=== PATIENT | female | born 1990 | race Caucasian/White ===

== ENCOUNTER 2018-09-26 20:48 | Emergency (ER) | payer MEDICAID ==
[2018-09-26] MEDS ORDERED: Metoclopramide 10 MG/2 ML SDV IVPUSH ONE (21:35)
[2018-09-26] MEDS ORDERED: Acetaminophen/Butalbital/Caffeine 325-50-40 MG Tab PO ONE (21:37)
--- NOTE | 2018-09-26 22:02 | EDM.PDOC ---
ED HPI GENERAL MEDICAL PROBLEM - General Chief Complaint: Headache Stated Complaint: HEADACHE Time Seen by Provider: 09/26/18 21:02 Source of Information: Reports: Patient, RN Notes Reviewed, Significant Other ( Boyfriend) History Limitations: Reports: No Limitations - History of Present Illness INITIAL COMMENTS - FREE TEXT/NARRATIVE: The patient states that she is 10 weeks 6 days , by ultrasound obtained this past 09/24/2017. She states that she has been experiencing a bifrontal headache, throbbing in character, for the past week or so. The pain is constant. No visual changes. Light hurts her eyes, but does not worsen her headache, per se. She reports phonophobia. She has had nausea, but no emesis. She reports tingling of some fingers for the past 2 months, but no new neurologic symptoms, such as unilateral weakness. The patient also reports that she has had nasal congestion and cough. 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 Lazo, 4 days ago. She states the symptoms that prompted the diagnosis of a sinus infection were a stuffy and runny nose, cough, and phlegm. She denies having a recent fever. She denies having any facial pain, swelling, or erythema. She denies having any purulent nasal drainage or halitosis. All of these symptoms started about the same time as her headache. The patient states that the Z-Beto does not seem to have done anything. She is also taking Tylenol, 10-12 tablets of 500 mg per day (5-6 g per day), and that it only seems to be making her sick. She states that she tried [place] nasal spray, as well as oral Sudafed, also without any relief. The patient states that she is prescribed Reglan for morning sickness. She is typically taking it 3-4 times a day, although the last time she took it was this morning. She also reports drinking 2-4 caffeinated beverages per day, typically, but that she is trying to cut down, and has had only 2 today. The patient has continued to smoke half a pack of cigarettes per day throughout her . The patient's PCP is Dr. Hale. Headache Pain Score (Numeric/FACES): 10 - Related Data Allergies Allergy/AdvReac Type Severity Reaction Status Date / Time amoxicillin [From Augmentin] Allergy Rash Verified 09/26/18 21:04 clavulanic acid Allergy Rash Verified 09/26/18 21:04 [From Augmentin] latex Allergy Other Verified 09/26/18 21:04 Penicillins Allergy Airway Verified 09/26/18 21:04 Tightness Home Meds: Home Meds Azithromycin [Zithromax] 250 mg PO DAILY 09/26/18 [History] Cyanocobalamin (Vitamin B12) [Vitamin B12] 1 ml INJECT ASDIRECTED 09/26/18 [ History] PNV95/Ferrous Fumarate/FA [ Tablet] 1 tab PO DAILY 09/26/18 [History] Past Medical History 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: : 2 Para: 1 - Past Surgical History GI Surgical History: Reports: Bariatric Procedure (gastric bypass 2009), Cholecystectomy (2010), Other (See Below) (Hemorrhoidectomy 2017) Social & Family History - Tobacco Use Smoking Status *Q: Current Every Day Smoker Years of Tobacco use: 9 Packs/Tins Daily: 0.5 Packs/Tins Daily Comment: Down from 1 ppd - Caffeine Use Caffeine Use: Reports: Coffee - Alcohol Use Alcohol Use History: Yes Alcohol Use Frequency: Socially (when not ) - Recreational Drug Use Recreational Drug Use: No - Living Situation & Occupation Living situation: Reports: Single, Alone Occupation: Employed ([employer]) ED ROS GENERAL - Review of Systems Review Of Systems: ROS reveals no pertinent complaints other than HPI. - Physical Exam Exam: See Below Exam Limited By: No Limitations General Appearance: Alert, WD/WN, Mild Distress (appears uncomfortable) Eye Exam: Bilateral Eye: EOMI, Normal Inspection, PERRL Ears: Normal External Exam, Normal Canal, Hearing Grossly Normal, Normal TMs Nose: Normal Inspection, Normal Mucosa, No Blood Throat/Mouth: Normal Inspection, Normal Lips, Normal Teeth, Normal Gums, Normal Oropharynx, Normal Voice, No Airway Compromise Head Exam: Atraumatic, Normocephalic. No: Sinus Tenderness Neck: Normal Inspection, Supple, Non-Tender, Full Range of Motion. No: Lymphadenopathy (L), Lymphadenopathy (R) Respiratory/Chest: No Respiratory Distress, Lungs Clear, Normal Breath Sounds, No Accessory Muscle Use Cardiovascular: Normal Peripheral Pulses, Regular Rate, Rhythm, No Gallop, No JVD, No Murmur, No Rub GI/Abdominal: Normal Bowel Sounds, Soft, Non-Tender, No Organomegaly, No Distention, No Abnormal Bruit, No Mass, Other (Obese) (Female) Exam: Deferred Rectal (Female) Exam: Deferred Neuro Exam (Abbreviated): Alert, Oriented, CN II-XII Intact, Normal Cognition, No Motor/Sensory Deficits Back Exam: Normal Inspection, Full Range of Motion, NT Extremities: Normal Inspection, Normal Range of Motion, No Pedal Edema, Normal Capillary Refill Psychiatric: Normal Affect Skin Exam: Warm, Dry, Intact, Normal Color, No Rash Course - Vital Signs Last Recorded V/S: Last Vital Signs Temp 36.9 C 09/26/18 21:09 Pulse 75 09/26/18 21:09 Resp 20 09/26/18 21:09 BP 121/91 H 09/26/18 21:09 Pulse Ox 99 09/26/18 21:09 - Orders/Labs/Meds Meds: Medications Discontinued Medications Generic Name Dose Route Start Last Admin Trade Name Latonya PRN Reason Stop Dose Admin Acetaminophen/Butalbital/Caffeine 1 tab 09/26/18 21:37 09/26/18 22:05 Fioricet 325-50-40 Mg PO 09/26/18 21:38 1 tab ONETIME ONE Administration Metoclopramide HCl 10 mg 09/26/18 21:35 09/26/18 22:05 Reglan IVPUSH 09/26/18 21:36 10 mg ONETIME ONE Administration Ondansetron HCl 4 mg 09/26/18 22:09 09/26/18 22:13 Zofran Odt PO 09/26/18 22:10 4 mg ONETIME ONE Administration - Re-Assessments/Exams Free Text/Narrative Re-Assessment/Exam: 09/26/18 22:09 The cause of the patient's headache is unclear. While the patient refers to her headaches as migraines, and she has several features that are consistent with a migraine, such as throbbing in character, photophobia, phonophobia, and nausea, there are other features that are not consistent with a migraine, such as bifrontal location and absence of neurologic symptoms. The patient states that she was treated for migraines in the past, but took a daily medicine, not an as- needed medicine. Could the patient be referring to migraine prophylaxis? Ordinarily, if the patient were not and migraine etiology seemed likely , I would treat her with IM Haldol, and if that relieved her headache, that her headache is migrainous, without question. If it did nothing, that it is unlikely to be migrainous. Unfortunately, Haldol, Imitrex, and Maxalt are all category C, however, current guidelines recommend first attempting treatment of migraines in with acetaminophen alone, and if that is ineffective, adding IV Reglan, followed by oral Fioricet. If the patient's headache is a tension headache, Norflex is category C. Skelaxin may be okay, but preferably in the 2nd and 3rd trimester. Soma is probably okay, although both Skelaxin and Soma are not categorized. Flexeril is category B, although it is not truly a muscle relaxant. If the patient's headache is a sinus headache, which I doubt, given her physical exam, it is permissible for the patient to use a nasal decongestant spray, such as oxymetazoline, but only if she limits it to a few days. If the patient's headache is a medication overuse headache, or caffeine withdrawal headache, both of which are quite possible, Fioricet is not categorized, although Fiorinal is category C. I discussed the above with the patient and her boyfriend, and she agreed to try the Reglan and Fioricet. 09/26/18 22:35 Notified by Veronica HOWARD that the patient declined the Fioricet, due to the Tylenol that is intermittent. She is aware that she has been taking excessive Tylenol. Unfortunately, Fioricet does not come in an acetaminophen-free form. She told the nurse that the Reglan seems to be making her nausea worse. I have ordered 4 mg Zofran ODT. 09/26/18 23:23 The patient states that she is feeling significantly better. She was napping. As above, the underlying cause of the patient's headache is unclear, although I suspect that it may be due to medication overuse or caffeine withdrawal, or some combination. A migraine is possible, although I think it less likely. For tonight's purposes, I am recommending that the patient stay well hydrated and get plenty of rest in a dark, quiet place. I would then like her to follow-up with Dr. Lazo. Them recommending that she completely discontinue taking Tylenol altogether. The patient agreed. Departure - Departure Time of Disposition: 23:24 Disposition: Home, Self-Care 01 Condition: Fair Clinical Impression: Headache, Nausea, URI with cough and congestion - Discharge Information *PRESCRIPTION DRUG MONITORING PROGRAM REVIEWED*: Not Applicable *COPY OF PRESCRIPTION DRUG MONITORING REPORT IN PATIENT GYPSY: Not Applicable Referrals: Chris Lazo MD [Primary Care Provider] - Forms: ED Department Discharge Additional Instructions: You were seen in the emergency room for a headache with cough and congestion for the past week, while . You were treated with IV Reglan and oral Zofran in the ER, and had some improvement in your headache. We recommend that you stay adequately hydrated, and get plenty of rest in a dark , quiet place. The underlying cause of your headache is not clear. It could have a migraine component, versus medication overuse, versus caffeine withdrawal, versus sinusitis. You have been taking far too much Tylenol. We recommend that you discontinue it entirely, for the time being. We recommend that you follow-up with your Toilet And Laundry Soap Supervisor, Dr. Lazo, for further evaluation. If any other problems, please do not hesitate to return to the ER.
[2018-09-26] MEDS ORDERED: Ondansetron 4 MG Tab.DIS PO ONE (22:09)
== END 2018-09-26 22:37 | disposition home or self-care (01) ==
LOC: JD.ED 20:48 → SUPCPDRO 20:48 → JD.ED 22:37
DX: O99.511 Diseases of the respiratory system complicating pregnancy, first trimester (principal); J06.9 Acute upper respiratory infection, unspecified; R11.0 Nausea; O99.331 Smoking (tobacco) complicating pregnancy, first trimester; F17.210 Nicotine dependence, cigarettes, uncomplicated; Z88.1 Allergy status to other antibiotic agents; Z91.040 Latex allergy status; Z88.0 Allergy status to penicillin; Z79.899 Other long term (current) drug therapy; Z3A.10 10 weeks gestation of pregnancy
CPT/HCPCS: 96374; 99284; A9270; J2765

== ENCOUNTER 2019-05-23 19:53 | Emergency (ER) | payer MEDICAID ==
--- NOTE | 2019-05-23 20:52 | EDM.PDOC ---
ED HPI GENERAL MEDICAL PROBLEM - General Chief Complaint: ENT Problem Stated Complaint: right side recent tooth pulled possible dry socket Time Seen by Provider: 05/23/19 20:26 Source of Information: Reports: Patient History Limitations: Reports: No Limitations - History of Present Illness INITIAL COMMENTS - FREE TEXT/NARRATIVE: This is a 28-year-old female. She had a tooth extracted it looks like the right upper incisor on Saturday. She noted yesterday that the area started to hurt. She has no drainage from it. She believes she has a dry socket now. She does smoke and she does drink sodas. I explained to her that once that blood clot gets washed away from the tooth extraction site that causes a dry socket area and normally there is no antibiotics given that we just do pain control. I explained to her that narcotics are not normally given but to take ibuprofen or Aleve. I also suggested some clove oil to put on a Q-tip in that socket as well as get some black tea bags moistened and packed that area with the teabag. He denies any facial swelling she denies any other acute symptoms. Right Upper Tooth/Teeth Pain Score (Numeric/FACES): 9 - Related Data Allergies Allergy/AdvReac Type Severity Reaction Status Date / Time amoxicillin [From Augmentin] Allergy Rash Verified 04/14/19 10:29 clavulanic acid Allergy Rash Verified 04/14/19 10:29 [From Augmentin] latex Allergy Other Verified 04/14/19 10:29 Penicillins Allergy Airway Verified 04/14/19 10:29 Tightness Home Meds: Home Meds Cyanocobalamin (Vitamin B12) [Vitamin B12] 1 ml INJECT ASDIRECTED 09/26/18 [ History] Acetaminophen [Tylenol] 650 mg PO Q6H PRN tablet 04/16/19 [Rx] Ibuprofen [Motrin] 600 mg PO Q6H PRN tablet 04/16/19 [Rx] Past Medical History - Past Health History Medical/Surgical History: Denies Medical/Surgical History Gastrointestinal History: Reports: Other (See Below) Other Gastrointestinal History: gastric bi pass 2009 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: - Past Surgical History HEENT Surgical History: Reports: Other (See Below) Other HEENT Surgeries/Procedures: dental issues GI Surgical History: Reports: Bariatric Procedure, Cholecystectomy Social & Family History - Family History Family Medical History: Noncontributory - Tobacco Use Smoking Status *Q: Current Every Day Smoker Years of Tobacco use: 9 Packs/Tins Daily: 1 - Caffeine Use Caffeine Use: Reports: Coffee, Soda - Recreational Drug Use Recreational Drug Use: No - Living Situation & Occupation Living situation: Reports: Single, Alone Occupation: Employed ([employer]) ED ROS ENT - Review of Systems Review Of Systems: See Below Constitutional: Denies: Fever, Chills HEENT: Reports: Other (As per history of present illness) Respiratory: Reports: No Symptoms Cardiovascular: Reports: No Symptoms Endocrine: Reports: No Symptoms GI/Abdominal: Reports: No Symptoms : Reports: No Symptoms Musculoskeletal: Reports: No Symptoms Skin: Reports: No Symptoms Neurological: Reports: No Symptoms Psychiatric: Reports: No Symptoms Hematologic/Lymphatic: Reports: No Symptoms ED EXAM, ENT - Physical Exam Exam: See Below Exam Limited By: No Limitations General Appearance: Alert, WD/WN, Mild Distress Eye Exam: Bilateral Eye: Normal Inspection Ears: Normal External Exam Nose: Normal Inspection Mouth/Throat: Other (The right upper incisor tooth area is removed, I can see the bone and the gum is not closed over it and there is no blood clot there and I believe she has a dry socket, there is no gum swelling there is no drainage from the area) Head: Normocephalic Neck: Supple, Other (No lymphadenopathy) Respiratory/Chest: No Respiratory Distress GI/Abdominal: Soft Back: Full Range of Motion Extremities: Normal Inspection, Normal Range of Motion Neurological: Alert, Oriented Psychiatric: Normal Affect, Normal Mood Skin: Warm, Dry Course - Vital Signs Last Recorded V/S: Last Vital Signs Temp 97.8 F 05/23/19 20:15 Pulse 70 05/23/19 20:15 Resp 20 05/23/19 20:15 BP 160/96 H 05/23/19 20:15 Pulse Ox 98 05/23/19 20:15 - Re-Assessments/Exams Free Text/Narrative Re-Assessment/Exam: 05/23/19 21:42 I spoke to the patient regarding using clove oil and black tea bags that are moistened to pack the area. Also suggested Aleve 2 tablets 3 times a day with food to help with pain. She indicates she is going to call the dentist on Saturday for reevaluation and I thought that is a excellent idea. Departure - Departure Time of Disposition: 20:50 Disposition: Home, Self-Care 01 Condition: Good Clinical Impression: Dry tooth socket - Discharge Information *PRESCRIPTION DRUG MONITORING PROGRAM REVIEWED*: Not Applicable *COPY OF PRESCRIPTION DRUG MONITORING REPORT IN PATIENT GYPSY: Not Applicable Instructions: Dental Dry Socket, [id number] Referrals: PCP,None [Primary Care Provider] - Forms: ED Department Discharge Additional Instructions: Go to [facility] and get some clove oil and some black tea bags and packed the dry socket with the clove oil or at least coated and then used the moist black tea bags to pack the area to help with the pain, get Aleve take 2 tablets 3 times a day food. No sodas, cut back on smoking as much as possible, and do not use any straws area and follow up with your dentist on Saturday for recheck.
== END 2019-05-23 21:13 | disposition home or self-care (01) ==
LOC: JD.ED 19:53
DX: M27.3 Alveolitis of jaws (principal); F17.210 Nicotine dependence, cigarettes, uncomplicated; Z88.1 Allergy status to other antibiotic agents; Z88.0 Allergy status to penicillin; Z91.040 Latex allergy status
CPT/HCPCS: 99282

== ENCOUNTER 2019-07-03 14:14 | Emergency (ER) | payer MEDICAID ==
--- NOTE | 2019-07-03 15:10 | EDM.PDOC ---
<KehindeKianna daley - Last Filed: 07/03/19 15:14> ED HPI GENERAL MEDICAL PROBLEM - General Chief Complaint: ENT Problem Stated Complaint: DENTAL COMPLAINT Time Seen by Provider: 07/03/19 14:40 History Limitations: Reports: No Limitations - History of Present Illness INITIAL COMMENTS - FREE TEXT/NARRATIVE: Diamond is a 28 year old female who presents today c/o dental pain. She had a metal filling done on her left lower premolar and a eneida silver crown placed on the adjacent first molar on 07/01. The filling was very deep but not enough to warrant a root canal. When she woke up the next morning she felt a constant throbbing ache to the area of her dental work. She is also having some sharp shooting pain that she compares to "chewing on tin foil when you have metal fillings." She returned to the dentist yesterday to have the teeth rechecked and they shaved down her filling to better fit her bite. She said they suggested drilling out the metal filling and replacing it with a white filling but wanted her to try eating runny eggs, bananas and tums first to see if that helped with the pain, which it did not. The dentist was unable to see her again on and will not be in office until saturday. She has had no relief with Aleve. She denies fever, swelling, redness and any temperature sensitivities. - Related Data Allergies Allergy/AdvReac Type Severity Reaction Status Date / Time amoxicillin [From Augmentin] Allergy Rash Verified 04/14/19 10:29 clavulanic acid Allergy Rash Verified 04/14/19 10:29 [From Augmentin] latex Allergy Other Verified 04/14/19 10:29 Penicillins Allergy Airway Verified 04/14/19 10:29 Tightness Home Meds: Home Meds Cyanocobalamin (Vitamin B12) [Vitamin B12] 1 ml INJECT ASDIRECTED 09/26/18 [ History] Acetaminophen [Tylenol] 650 mg PO Q6H PRN tablet 04/16/19 [Rx] Ibuprofen [Motrin] 600 mg PO Q6H PRN tablet 04/16/19 [Rx] Acetaminophen/HYDROcodone [[place] 325-5 MG] 1 tab PO Q6H PRN #14 tablet 07/03/19 [Rx] Clindamycin HCl [Cleocin HCl] 150 mg PO Q8HR #20 capsule 07/03/19 [Rx] Etonogestrel [Nexplanon] 68 mg IMPLANT ASDIRECTED 07/03/19 [History] Naproxen [Naprosyn] 500 mg PO Q12HR #14 tab 07/03/19 [Rx] ED ROS ENT - Review of Systems Review Of Systems: See Below Constitutional: Reports: No Symptoms HEENT: Reports: Dental Pain. Denies: Throat Pain, Throat Swelling Respiratory: Reports: No Symptoms Cardiovascular: Reports: No Symptoms Endocrine: Reports: No Symptoms GI/Abdominal: Reports: No Symptoms : Reports: No Symptoms Musculoskeletal: Reports: No Symptoms Skin: Reports: No Symptoms Neurological: Reports: No Symptoms Psychiatric: Reports: No Symptoms Hematologic/Lymphatic: Reports: No Symptoms Immunologic: Reports: No Symptoms ED EXAM, ENT - Physical Exam Exam: See Below Exam Limited By: No Limitations General Appearance: Alert, WD/WN, No Apparent Distress Mouth/Throat: Normal Inspection, Normal Lips, Normal Oropharynx, Dental Pain, Dental Tenderness. No: Bleeding, Dental Abcess, Dental Trauma, Gum Swelling, Oral Ulcers, Throat Swelling, Tongue Swelling Head: Atraumatic, Normocephalic Neck: Normal Inspection, Supple, Non-Tender, Full Range of Motion Respiratory/Chest: No Respiratory Distress, Lungs Clear, Normal Breath Sounds, No Accessory Muscle Use, Chest Non-Tender Cardiovascular: Normal Peripheral Pulses, Regular Rate, Rhythm, No Edema, No Gallop, No JVD, No Murmur, No Rub Neurological: Alert Psychiatric: Normal Affect, Normal Mood Skin: Warm, Dry, Intact, Normal Color, No Rash Lymphatic: No Adenopathy Course - Vital Signs Last Recorded V/S: Last Vital Signs Temp 97.8 F 07/03/19 14:39 Pulse 78 07/03/19 14:39 Resp 20 07/03/19 14:39 BP 142/101 H 07/03/19 14:39 Pulse Ox 100 07/03/19 14:39 Departure - Departure Disposition: Home, Self-Care 01 Clinical Impression: Pain, dental - Discharge Information Prescriptions: Clindamycin HCl [Cleocin HCl] 150 mg PO Q8HR #20 capsule Naproxen [Naprosyn] 500 mg PO Q12HR #14 tab Acetaminophen/HYDROcodone [[place] 325-5 MG] 1 tab PO Q6H PRN #14 tablet PRN Reason: Pain Referrals: Devorah Adams MD [Primary Care Provider] - Forms: ED Department Discharge Additional Instructions: Clindamycin 150 mg 3 times daily for 1 week. Naprosyn 500 mg twice daily, tylenol in between doses for extra pain relief if needed or hydrocodone if needed for severe pain. Do not take tylenol and hydrocodone at the same time. Do not drive or when taking hydrocodone. See dentist early next week as planned. Prescriptions have been sent electronic to [facility]. 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: - Past Surgical History HEENT Surgical History: Reports: Other (See Below) Other HEENT Surgeries/Procedures: dental issues GI Surgical History: Reports: Bariatric Procedure, Cholecystectomy Social & Family History - Family History Family Medical History: Noncontributory - Tobacco Use Smoking Status *Q: Current Every Day Smoker Years of Tobacco use: 10 Packs/Tins Daily: 0.5 - Caffeine Use Caffeine Use: Reports: Coffee, Soda - Recreational Drug Use Recreational Drug Use: No - Living Situation & Occupation Living situation: Reports: Single, Alone Occupation: Employed ([employer]) Course - Re-Assessments/Exams Free Text/Narrative Re-Assessment/Exam: 07/03/19 15:53 initial hx and exam was done by ZOË Kumar student, I agree with her hx and exam as documented. I have also examined patient. Discharge instr. as documented. Departure - Departure Time of Disposition: 15:03 Condition: Fair
== END 2019-07-03 15:40 | disposition home or self-care (01) ==
LOC: JD.ED 14:14
DX: K08.89 Other specified disorders of teeth and supporting structures (principal); F17.210 Nicotine dependence, cigarettes, uncomplicated; Z88.0 Allergy status to penicillin; Z91.040 Latex allergy status; Z88.1 Allergy status to other antibiotic agents
CPT/HCPCS: 99282

== ENCOUNTER 2019-11-02 09:13 | Emergency (ER) | payer SELFPAY ==
--- NOTE | 2019-11-02 10:21 | EDM.PDOC ---
ED HPI GENERAL MEDICAL PROBLEM - General Chief Complaint: Respiratory Problem Stated Complaint: CAN'T CATCH BREATH Time Seen by Provider: 11/02/19 10:11 - History of Present Illness INITIAL COMMENTS - FREE TEXT/NARRATIVE: 29-year-old female presents the emergency room with breathing difficulties and anxiety. The patient is developed a nonproductive cough over the last 3 to 4 days. But over the last week or so the patient has had escalating anxiety. She is not sure what is causing what at this point. She denies any fevers or chills she is just been under all sorts of stress. She has been using an albuterol MDI without much success at this point - Related Data Allergies Allergy/AdvReac Type Severity Reaction Status Date / Time amoxicillin [From Augmentin] Allergy Rash Verified 11/02/19 09:30 clavulanic acid Allergy Rash Verified 11/02/19 09:30 [From Augmentin] latex Allergy Other Verified 11/02/19 09:30 Penicillins Allergy Airway Verified 11/02/19 09:30 Tightness Home Meds: Home Meds Acetaminophen [Tylenol] 650 mg PO Q6H PRN tablet 04/16/19 [Rx] Etonogestrel [Nexplanon] 68 mg IMPLANT ASDIRECTED 07/03/19 [History] Albuterol Sulfate [Albuterol Sulfate Hfa] 8.5 gm IH Q4H #1 hfa.aer.ad 11/02/19 [ Rx] LORazepam [Ativan] 0.5 mg PO Q24H PRN #6 tablet 11/02/19 [Rx] Past Medical History - Past Health History Medical/Surgical History: Denies Medical/Surgical History Gastrointestinal History: Reports: Other (See Below) Other Gastrointestinal History: gastric bi pass 2009 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: - Past Surgical History HEENT Surgical History: Reports: Other (See Below) Other HEENT Surgeries/Procedures: dental issues GI Surgical History: Reports: Bariatric Procedure, Cholecystectomy Social & Family History - Family History Family Medical History: Noncontributory - Tobacco Use Smoking Status *Q: Current Every Day Smoker Years of Tobacco use: 10 Packs/Tins Daily: 0.5 - Caffeine Use Caffeine Use: Reports: Soda - Recreational Drug Use Recreational Drug Use: No - Living Situation & Occupation Living situation: Reports: Single, Alone Occupation: Employed ([employer]) ED ROS GENERAL - Review of Systems Review Of Systems: See Below Constitutional: Reports: No Symptoms. Denies: Fever, Chills HEENT: Reports: No Symptoms Respiratory: Reports: Shortness of Breath, Cough. Denies: No Symptoms, Sputum Cardiovascular: Reports: No Symptoms Endocrine: Reports: No Symptoms GI/Abdominal: Reports: No Symptoms : Reports: No Symptoms Neurological: Reports: No Symptoms Psychiatric: Reports: Anxiety. Denies: Confusion, Suicidal Ideation Hematologic/Lymphatic: Reports: No Symptoms Immunologic: Reports: No Symptoms ED EXAM, GENERAL - Physical Exam Exam: See Below Exam Limited By: No Limitations General Appearance: Anxious (Mildly so) Eye Exam: Bilateral Eye: Normal Inspection Ears: Normal External Exam, Normal Canal, Hearing Grossly Normal, Normal TMs Nose: Normal Inspection, Normal Mucosa, No Blood Throat/Mouth: Normal Inspection, Normal Lips, Normal Teeth, Normal Gums, Normal Oropharynx, Normal Voice, No Airway Compromise Head: Atraumatic, Normocephalic Neck: Normal Inspection, Supple, Non-Tender, Full Range of Motion Respiratory/Chest: No Respiratory Distress, Lungs Clear, Normal Breath Sounds Cardiovascular: Regular Rate, Rhythm, No Edema, No Murmur Course - Vital Signs Last Recorded V/S: Last Vital Signs Temp 36.3 C 11/02/19 09:27 Pulse 88 11/02/19 09:27 Resp 25 H 11/02/19 09:27 BP 146/85 H 11/02/19 09:27 Pulse Ox 100 11/02/19 09:27 - Re-Assessments/Exams Free Text/Narrative Re-Assessment/Exam: 11/02/19 10:44 The patient does not have a ride home we will give her 1 mg Ativan to take when she gets home. Discussed getting a chest x-ray the patient would like to hold off on this which looks perfectly reasonable she has albuterol at home and but it is running low so we will refill her albuterol MDI advised her to use it 2 puffs every 4-6 hours while awake it is been shown to reduce the severity and the duration of her bronchitis but will not necessarily show immediate improvement. Departure - Departure Time of Disposition: 10:45 Disposition: Home, Self-Care 01 Clinical Impression: Bronchitis, Anxiety - Discharge Information Prescriptions: Albuterol Sulfate [Albuterol Sulfate Hfa] 8.5 gm IH Q4H #1 hfa.aer.ad LORazepam [Ativan] 0.5 mg PO Q24H PRN #6 tablet PRN Reason: Anxiety Referrals: Devorah Adams MD [Primary Care Provider] - Additional Instructions: Return to the emergency room with any questions problems or worsening symptoms. Continue using your albuterol inhaler 2 puffs every 4 hours while awake it will not show an immediate improvement but over time it is been shown in multiple studies to reduce the severity and reduce the duration of the bronchitis. Use the Ativan as directed. Follow-up with your regular provider if needed. Sepsis Event Note - Evaluation Sepsis Screening Result: No Definite Risk - Focused Exam Vital Signs: Vital Signs Temp Pulse Resp BP Pulse Ox 11/02/19 09:27 36.3 C 88 25 H 146/85 H 100 Date Exam was Performed: 11/02/19 Time Exam was Performed: 10:11
[2019-11-02] MEDS ORDERED: LORazepam 1 MG Tab PO ONE (10:24)
== END 2019-11-02 11:01 | disposition home or self-care (01) ==
LOC: JD.ED 09:13
DX: J40 Bronchitis, not specified as acute or chronic (principal); F41.9 Anxiety disorder, unspecified; F17.210 Nicotine dependence, cigarettes, uncomplicated; Z88.1 Allergy status to other antibiotic agents; Z88.0 Allergy status to penicillin; Z91.040 Latex allergy status; Z88.8 Allergy status to other drugs, medicaments and biological substances
CPT/HCPCS: 99284; A9270; 99283

== ENCOUNTER 2022-04-27 20:54 | Emergency (ER) | payer SELFPAY | END 2022-04-27 23:00 | LOC: JD.ED 20:54 | DX: Z53.21 Procedure and treatment not carried out due to patient leaving prior to being seen by health care provider (principal) ==

== ENCOUNTER 2022-07-23 15:45 | Emergency (ER) | payer MEDICAID ==
[2022-07-23] MEDS ORDERED: HYDROmorphone 1 MG/ML Syringe IM ONE (17:11)
== END 2022-07-23 18:56 | disposition home or self-care (01) ==
LOC: JD.ED 15:45
DX: K08.89 Other specified disorders of teeth and supporting structures (principal); Z72.0 Tobacco use; Z88.0 Allergy status to penicillin; Z88.1 Allergy status to other antibiotic agents; Z91.040 Latex allergy status
CPT/HCPCS: 96372; 99282; J1170

== ENCOUNTER 2023-06-28 05:41 | Emergency (ER) | payer MEDICAID ==
[2023-06-28] MEDS ORDERED: Ketorolac 60 MG/2 ML SDV IM ONE (06:06)
[2023-06-28] MEDS ORDERED: Sodium Chloride 0.9% 1,000 ML IV ONE (06:44)
[2023-06-28 06:53] LABS: CORONAVIRUS COVID-19 NAA NEGATIVE (NEGATIVE); INFLUENZA A NAA NEGATIVE (NEGATIVE); RESPIRATORY SYNCYTIAL VIR NAA NEGATIVE (NEGATIVE)
[2023-06-28 06:57] LABS: BASOPHILS PERCENT AUTO 0.3 % (0.0-1.0); EOSINOPHILS ABSOLUTE AUTO 0.1 K/mm3 (0.0-0.4); HEMATOCRIT 40.9 % (37.0-47.0); HEMOGLOBIN 12.6 gm/dl (12.0-16.0); IMMATURE GRAN ABSOLUTE AUTO 0.03 K/mm3 (0.00-0.05); IMMATURE GRAN PERCENT AUTO 0.3 % (0.0-0.4); LYMPHOCYTES ABSOLUTE AUTO 0.7 K/mm3 (1.0-4.8); LYMPHOCYTES PERCENT AUTO 7.8 % (24.0-44.0); MEAN CORPUSCULAR HGB CONC 30.8 g/dl (32.0-36.0); MEAN CORPUSCULAR VOLUME 84.5 fl (83.0-99.0); MEAN PLATELET VOLUME 10.6 fl (9.4-12.3); MONOCYTES ABSOLUTE AUTO 1.1 K/mm3 (0.0-0.8); MONOCYTES PERCENT AUTO 12.6 % (0.0-8.0); PLATELET COUNT,PLT 171 K/mm3 (150-400); RED BLOOD CELL COUNT 4.84 M/mm3 (4.10-5.30); WHITE BLOOD CELL COUNT,WBC 8.99 K/mm3 (3.9-11.3)
[2023-06-28] MEDS ORDERED: Acetaminophen/HYDROcodone 325-5 MG Tab PO PRN (07:17)
[2023-06-28 07:22] LABS: A/G RATIO 0.8 (1-2); ALBUMIN 3.4 g/dl (3.4-5.0); ANION GAP 15.7 (5-15); BILIRUBIN TOTAL 0.2 mg/dL (0.2-1.0); BUN/CREATININE RATIO 15.7 (14-18); CALCIUM 9.2 mg/dL (8.5-10.1); CREATININE 0.7 mg/dL (0.55-1.02); EST CRCL DRUG DOSING (CG) 104.78 mL/min; MAGNESIUM 1.9 mg/dL (1.8-2.4); POTASSIUM,K 3.7 mEq/L (3.5-5.1); PROTEIN TOTAL,TP 7.5 g/dl (6.4-8.2)
== END 2023-06-28 08:25 | disposition home or self-care (01) ==
LOC: JD.ED 05:41
DX: J06.9 Acute upper respiratory infection, unspecified (principal); F17.210 Nicotine dependence, cigarettes, uncomplicated; Z20.822 Contact with and (suspected) exposure to COVID-19; Z88.0 Allergy status to penicillin; Z91.040 Latex allergy status; Z88.8 Allergy status to other drugs, medicaments and biological substances
CPT/HCPCS: 0241U; 36415; 80053; 83735; 85025; 87651; 96360; 96361; 96372; 99284; A9270; J1885; J7030; 99283

== ENCOUNTER 2023-06-29 05:16 | Emergency (ER) | payer MEDICAID ==
[2023-06-29] MEDS ORDERED: Sodium Chloride 0.9% 1,000 ML IV ONE (05:40)
[2023-06-29] MEDS ORDERED: Ketorolac 30 MG/ML SDV IVPUSH ONE (05:40)
[2023-06-29] MEDS ORDERED: diphenhydrAMINE 50 MG/ML SDV IVPUSH ONE (05:40)
[2023-06-29] MEDS ORDERED: Metoclopramide 10 MG/2 ML SDV IVPUSH ONE (05:40)
[2023-06-29] MEDS ORDERED: Sodium Chloride 0.9% 10 ML Syringe FLUSH PRN (05:40)
== END 2023-06-29 07:22 | disposition home or self-care (01) ==
LOC: JD.ED 05:16
DX: R51.9 Headache, unspecified (principal); H66.003 Acute suppurative otitis media without spontaneous rupture of ear drum, bilateral; J01.90 Acute sinusitis, unspecified; J06.9 Acute upper respiratory infection, unspecified; Z88.1 Allergy status to other antibiotic agents; Z88.0 Allergy status to penicillin; Z91.040 Latex allergy status
CPT/HCPCS: 70450; 96361; 96374; 96375; 99284; J1200; J1885; J2765; J7030

== ENCOUNTER 2023-09-18 07:24 | Emergency (ER) | payer MEDICAID ==
[2023-09-18] MEDS ORDERED: Ketorolac 30 MG/ML SDV IVPUSH ONE (08:28)
[2023-09-18] MEDS ORDERED: Sodium Chloride 0.9% 10 ML Syringe FLUSH PRN ×2 (08:28→10:11)
[2023-09-18] MEDS ORDERED: Prochlorperazine 10 MG/2 ML SDV IVPUSH ONE (08:28)
[2023-09-18] MEDS ORDERED: diphenhydrAMINE 50 MG/ML SDV IVPUSH ONE (08:28)
[2023-09-18] MEDS ORDERED: Sodium Chloride 0.9% 1,000 ML IV ONE (08:28)
[2023-09-18 09:20] LABS: BASOPHILS PERCENT AUTO 0.3 % (0.0-1.0); EOSINOPHILS ABSOLUTE AUTO 0.1 K/mm3 (0.0-0.4); EOSINOPHILS PERCENT AUTO 0.8 % (0.0-6.0); HEMATOCRIT 38.5 % (37.0-47.0); HEMOGLOBIN 12.5 gm/dl (12.0-16.0); IMMATURE GRAN ABSOLUTE AUTO 0.05 K/mm3 (0.00-0.05); IMMATURE GRAN PERCENT AUTO 0.5 % (0.0-0.4); LYMPHOCYTES ABSOLUTE AUTO 0.5 K/mm3 (1.0-4.8); LYMPHOCYTES PERCENT AUTO 4.6 % (24.0-44.0); MEAN CORPUSCULAR HEMOGLOBIN 26.2 pg (28.0-32.0); MEAN CORPUSCULAR HGB CONC 32.5 g/dl (32.0-36.0); MEAN CORPUSCULAR VOLUME 80.5 fl (83.0-99.0); MEAN PLATELET VOLUME 10.6 fl (9.4-12.3); MONOCYTES ABSOLUTE AUTO 0.2 K/mm3 (0.0-0.8); MONOCYTES PERCENT AUTO 2.1 % (0.0-8.0); NEUTROPHILS ABSOLUTE AUTO 9.9 K/mm3 (1.8-7.7); NEUTROPHILS PERCENT AUTO 91.7 % (41.0-71.0); PLATELET COUNT,PLT 251 K/mm3 (150-400); RED BLOOD CELL COUNT 4.78 M/mm3 (4.10-5.30); WHITE BLOOD CELL COUNT,WBC 10.74 K/mm3 (3.9-11.3)
[2023-09-18 09:37] LABS: A/G RATIO 1.1 (1-2); ALBUMIN 3.8 g/dl (3.4-5.0); ANION GAP 18.4 (5-15); BUN/CREATININE RATIO 25.7 (14-18); CALCIUM 9.1 mg/dL (8.5-10.1); CREATININE 0.7 mg/dL (0.55-1.02); EST CRCL DRUG DOSING (CG) 103.82 mL/min; MAGNESIUM 1.5 mg/dL (1.8-2.4); POTASSIUM,K 3.4 mEq/L (3.5-5.1); PROTEIN TOTAL,TP 7.2 g/dl (6.4-8.2)
[2023-09-18 09:38] LABS: APPEARANCE,URINE SLT CLOUDY (Clear); BILIRUBIN,URINE 1+ (Negative); COLOR,URINE DARK YELLOW (Yellow); GLUCOSE,URINE NEGATIVE (Negative); KETONES,URINE TRACE (Negative); LEUKOCYTE ESTERASE,URINE 1+ (Negative); NITRITE,URINE NEGATIVE (Negative); OCCULT BLOOD,URINE NEGATIVE (Negative); PH,URINE 7.5 (5.0-8.0); PROTEIN,URINE 1+ (Negative)
[2023-09-18 09:47] LABS: BACTERIA,URINE MODERATE /hpf (FEW); MUCUS,URINE MODERATE /hpf (FEW); RBC,URINE 0-5 /hpf (0-5)
[2023-09-18] MEDS ORDERED: Iopamidol 612 MG/ML 100 ML Bottle IVPUSH ONE (10:11)
[2023-09-18 13:04] LABS: CORONAVIRUS COVID-19 NAA NEGATIVE (NEGATIVE); INFLUENZA A NAA NEGATIVE (NEGATIVE); RESPIRATORY SYNCYTIAL VIR NAA NEGATIVE (NEGATIVE)
== END 2023-09-18 13:17 | disposition home or self-care (01) ==
LOC: JD.ED 07:24
DX: A08.4 Viral intestinal infection, unspecified (principal); Z20.822 Contact with and (suspected) exposure to COVID-19; Z88.0 Allergy status to penicillin; Z91.048 Other nonmedicinal substance allergy status
CPT/HCPCS: 0241U; 36415; 74177; 80053; 81001; 83735; 84703; 85025; 96361; 96374; 96375; 99284; J0780; J1200; J1885; J3490; J7030; Q9967

== ENCOUNTER 2023-09-19 11:00 | Inpatient (IN) | payer MEDICAID ==
[2023-09-19] MEDS ORDERED: Sodium Chloride 0.9% 1,000 ML IV STA (11:26)
[2023-09-19] MEDS ORDERED: Dicyclomine 20 MG/2 ML SDV IM ONE (11:35)
[2023-09-19] MEDS ORDERED: Metoclopramide 10 MG/2 ML SDV IVPUSH ONE (11:36)
[2023-09-19] MEDS ORDERED: Ketorolac 30 MG/ML SDV IVPUSH ONE (11:36)
[2023-09-19] MEDS: Sodium Chloride 0.9% 10 ML Syringe FLUSH PRN ×2 (12:17→13:24)
[2023-09-19] MEDS ORDERED: diphenhydrAMINE 50 MG/ML SDV IVPUSH ONE (12:29)
[2023-09-19 12:34] LABS: BASOPHILS ABSOLUTE AUTO 0.1 K/mm3 (0.0-0.2); BASOPHILS PERCENT AUTO 0.4 % (0.0-1.0); EOSINOPHILS ABSOLUTE AUTO 0.2 K/mm3 (0.0-0.4); HEMATOCRIT 39.5 % (37.0-47.0); HEMOGLOBIN 12.6 gm/dl (12.0-16.0); IMMATURE GRAN ABSOLUTE AUTO 0.16 K/mm3 (0.00-0.05); IMMATURE GRAN PERCENT AUTO 0.8 % (0.0-0.4); LYMPHOCYTES ABSOLUTE AUTO 0.4 K/mm3 (1.0-4.8); LYMPHOCYTES PERCENT AUTO 2.3 % (24.0-44.0); MEAN CORPUSCULAR HEMOGLOBIN 25.6 pg (28.0-32.0); MEAN CORPUSCULAR HGB CONC 31.9 g/dl (32.0-36.0); MEAN CORPUSCULAR VOLUME 80.3 fl (83.0-99.0); MEAN PLATELET VOLUME 10.3 fl (9.4-12.3); MONOCYTES ABSOLUTE AUTO 0.3 K/mm3 (0.0-0.8); MONOCYTES PERCENT AUTO 1.7 % (0.0-8.0); NEUTROPHILS ABSOLUTE AUTO 18.2 K/mm3 (1.8-7.7); NEUTROPHILS PERCENT AUTO 93.8 % (41.0-71.0); PLATELET COUNT,PLT 265 K/mm3 (150-400); RED BLOOD CELL COUNT 4.92 M/mm3 (4.10-5.30); WHITE BLOOD CELL COUNT,WBC 19.37 K/mm3 (3.9-11.3)
[2023-09-19 12:50] LABS: SLIDE REVIEW ABNORMAL SMEAR
[2023-09-19 12:57] LABS: A/G RATIO 0.7 (1-2); ALBUMIN 2.8 g/dl (3.4-5.0); BILIRUBIN TOTAL 0.4 mg/dL (0.2-1.0); BUN/CREATININE RATIO 17.5 (14-18); CALCIUM 8.8 mg/dL (8.5-10.1); CREATININE 0.8 mg/dL (0.55-1.02); EST CRCL DRUG DOSING (CG) 90.7 mL/min; PROTEIN TOTAL,TP 6.8 g/dl (6.4-8.2)
[2023-09-19 13:05] LABS: C-REACTIVE PROTEIN 31.9 mg/dL (<1.0)
[2023-09-19] MEDS ORDERED: Iopamidol 612 MG/ML 30 ML SDV IVPUSH ONE (13:21)
[2023-09-19] MEDS ORDERED: Iopamidol 612 MG/ML 100 ML Bottle IVPUSH ONE (13:21)
[2023-09-19] MEDS ORDERED: HYDROmorphone 0.5 MG/0.5 ML Syringe IVPUSH ONE ×2 (14:35→17:42)
[2023-09-19] MEDS ORDERED: NS with KCl 40mEq 1,000 ML IV SCH (16:30)
[2023-09-19] MEDS ORDERED: cefTRIAXone 2 GM in Sodium Chloride 0.9% 100 ML IV ONE (17:39)
[2023-09-19] MEDS ORDERED: Ondansetron 4 MG Tab.DIS PO PRN (18:02)
[2023-09-19] MEDS ORDERED: Ondansetron 4 MG/2 ML SDV IV PRN (18:02)
[2023-09-19] MEDS ORDERED: Heparin Sodium 5,000 Units/ML Vial SUBCUT SCH ×2 (18:15→18:30)
[2023-09-19] MEDS ORDERED: cefTRIAXone 2 GM in Sodium Chloride 0.9% 100 ML IV SCH (18:15)
[2023-09-19 18:18] LABS: APPEARANCE,URINE CLOUDY (Clear); BILIRUBIN,URINE NEGATIVE (Negative); COLOR,URINE YELLOW (Yellow); GLUCOSE,URINE NEGATIVE (Negative); KETONES,URINE TRACE (Negative); LEUKOCYTE ESTERASE,URINE 1+ (Negative); NITRITE,URINE NEGATIVE (Negative); OCCULT BLOOD,URINE 2+ (Negative); PH,URINE 5.5 (5.0-8.0); PROTEIN,URINE 2+ (Negative); UROBILINOGEN,URINE 0.2 (0.2-1.0)
[2023-09-19 18:49] LABS: BACTERIA,URINE MANY /hpf (FEW); MUCUS,URINE FEW /hpf (FEW)
[2023-09-19] MEDS: Potassium Chloride 10 MEQ in Premix Bag 1 BAG IV SCH ×6 (19:51→23:11)
[2023-09-19] MEDS: Lactated Ringers 1,000 ML IV SCH (19:51)
[2023-09-19] MEDS: HYDROmorphone 0.5 MG/0.5 ML Syringe IVPUSH PRN ×2 (19:52→22:50)
[2023-09-19] MEDS: Acetaminophen 325 MG Tab PO PRN (22:50)
[2023-09-20] MEDS: Lactated Ringers 1,000 ML IV SCH (04:11)
[2023-09-20] MEDS: Heparin Sodium 5,000 Units/ML Vial SUBCUT SCH ×3 (04:11→20:25)
[2023-09-20] MEDS: HYDROmorphone 1 MG/ML Syringe IVPUSH PRN ×4 (04:21→20:28)
[2023-09-20] MEDS: HYDROmorphone 0.5 MG/0.5 ML Syringe IVPUSH PRN ×3 (07:49→18:24)
[2023-09-20] MEDS ORDERED: LORazepam 0.5 MG Tab PO PRN (08:02)
[2023-09-20] MEDS ORDERED: D5 1/2 NS w/ 20 mEq/L KCl 1,000 ML IV SCH (08:15)
[2023-09-20 08:46] LABS: BASOPHILS PERCENT AUTO 0.3 % (0.0-1.0); EOSINOPHILS ABSOLUTE AUTO 0.3 K/mm3 (0.0-0.4); HEMATOCRIT 33.7 % (37.0-47.0); IMMATURE GRAN ABSOLUTE AUTO 0.08 K/mm3 (0.00-0.05); IMMATURE GRAN PERCENT AUTO 0.7 % (0.0-0.4); LYMPHOCYTES ABSOLUTE AUTO 0.7 K/mm3 (1.0-4.8); LYMPHOCYTES PERCENT AUTO 6.4 % (24.0-44.0); MEAN CORPUSCULAR HEMOGLOBIN 25.3 pg (28.0-32.0); MEAN CORPUSCULAR HGB CONC 31.5 g/dl (32.0-36.0); MEAN CORPUSCULAR VOLUME 80.4 fl (83.0-99.0); MEAN PLATELET VOLUME 11.3 fl (9.4-12.3); MONOCYTES ABSOLUTE AUTO 0.5 K/mm3 (0.0-0.8); MONOCYTES PERCENT AUTO 4.9 % (0.0-8.0); NEUTROPHILS ABSOLUTE AUTO 9.2 K/mm3 (1.8-7.7); NEUTROPHILS PERCENT AUTO 84.7 % (41.0-71.0); PLATELET COUNT,PLT 245 K/mm3 (150-400); RED BLOOD CELL COUNT 4.19 M/mm3 (4.10-5.30); WHITE BLOOD CELL COUNT,WBC 10.92 K/mm3 (3.9-11.3)
[2023-09-20] MEDS ORDERED: Thiamine 200 MG/2 ML MDV IVPUSH SCH (09:00)
[2023-09-20] MEDS ORDERED: Folic Acid 50 MG/10 ML MDV IV SCH (09:00)
[2023-09-20] MEDS ORDERED: Pantoprazole 40 MG Vial IV SCH (09:00)
[2023-09-20 09:02] LABS: HEMOGLOBIN 10.6 gm/dl (12.0-16.0)
[2023-09-20 09:10] LABS: A/G RATIO 0.6 (1-2); ALBUMIN 2.2 g/dl (3.4-5.0); ANION GAP 13.5 (5-15); BILIRUBIN TOTAL 0.4 mg/dL (0.2-1.0); BUN/CREATININE RATIO 17.1 (14-18); CALCIUM 8.6 mg/dL (8.5-10.1); CREATININE 0.7 mg/dL (0.55-1.02); EST CRCL DRUG DOSING (CG) 103.82 mL/min; POTASSIUM,K 3.5 mEq/L (3.5-5.1)
[2023-09-20] MEDS: Potassium Chloride 10 MEQ in Premix Bag 1 BAG IV SCH ×2 (09:34→10:45)
[2023-09-20] MEDS: Pantoprazole 40 MG Tab.CR PO SCH (16:14)
[2023-09-20] MEDS: cefTRIAXone 2 GM in Sodium Chloride 0.9% 100 ML IV SCH (18:23)
[2023-09-20] MEDS: Acetaminophen 325 MG Tab PO PRN (18:24)
[2023-09-20] MEDS: oxyCODONE 5 MG Tab PO PRN (21:45)
[2023-09-21] MEDS: HYDROmorphone 1 MG/ML Syringe IVPUSH PRN ×4 (01:35→21:19)
[2023-09-21] MEDS: oxyCODONE 5 MG Tab PO PRN ×5 (04:43→21:03)
[2023-09-21] MEDS: Heparin Sodium 5,000 Units/ML Vial SUBCUT SCH ×3 (04:44→21:08)
[2023-09-21] MEDS: Pantoprazole 40 MG Tab.CR PO SCH ×3 (04:44→16:58)
[2023-09-21 05:31] LABS: BASOPHILS PERCENT AUTO 0.4 % (0.0-1.0); EOSINOPHILS ABSOLUTE AUTO 0.4 K/mm3 (0.0-0.4); EOSINOPHILS PERCENT AUTO 4.2 % (0.0-6.0); HEMATOCRIT 33.4 % (37.0-47.0); HEMOGLOBIN 10.6 gm/dl (12.0-16.0); IMMATURE GRAN ABSOLUTE AUTO 0.11 K/mm3 (0.00-0.05); IMMATURE GRAN PERCENT AUTO 1.3 % (0.0-0.4); LYMPHOCYTES ABSOLUTE AUTO 0.8 K/mm3 (1.0-4.8); LYMPHOCYTES PERCENT AUTO 9.1 % (24.0-44.0); MEAN CORPUSCULAR HEMOGLOBIN 25.9 pg (28.0-32.0); MEAN CORPUSCULAR HGB CONC 31.7 g/dl (32.0-36.0); MEAN CORPUSCULAR VOLUME 81.7 fl (83.0-99.0); MEAN PLATELET VOLUME 10.6 fl (9.4-12.3); MONOCYTES PERCENT AUTO 11.5 % (0.0-8.0); NEUTROPHILS ABSOLUTE AUTO 6.1 K/mm3 (1.8-7.7); NEUTROPHILS PERCENT AUTO 73.5 % (41.0-71.0); PLATELET COUNT,PLT 245 K/mm3 (150-400); RED BLOOD CELL COUNT 4.09 M/mm3 (4.10-5.30); WHITE BLOOD CELL COUNT,WBC 8.25 K/mm3 (3.9-11.3)
[2023-09-21 05:53] LABS: ANION GAP 10.9 (5-15); CALCIUM 8.5 mg/dL (8.5-10.1); CREATININE 0.6 mg/dL (0.55-1.02); EST CRCL DRUG DOSING (CG) 121.13 mL/min; MAGNESIUM 1.9 mg/dL (1.8-2.4); POTASSIUM,K 3.9 mEq/L (3.5-5.1)
[2023-09-21 06:12] LABS: C-REACTIVE PROTEIN 22.5 mg/dL (<1.0)
[2023-09-21] MEDS: Thiamine 100 MG Tab PO SCH (09:36)
[2023-09-21] MEDS: Folic Acid 1 MG Tab PO SCH (09:37)
[2023-09-21] MEDS: cefTRIAXone 2 GM in Sodium Chloride 0.9% 100 ML IV SCH (17:07)
[2023-09-21] MEDS: Simethicone 80 MG Tab.Chew PO PRN (21:05)
[2023-09-22] MEDS: HYDROmorphone 1 MG/ML Syringe IVPUSH PRN ×2 (01:17→05:16)
[2023-09-22] MEDS: Heparin Sodium 5,000 Units/ML Vial SUBCUT SCH ×3 (05:16→20:28)
[2023-09-22] MEDS: Pantoprazole 40 MG Tab.CR PO SCH ×2 (05:16→16:51)
[2023-09-22 05:22] LABS: BASOPHILS PERCENT AUTO 0.5 % (0.0-1.0); EOSINOPHILS ABSOLUTE AUTO 0.4 K/mm3 (0.0-0.4); EOSINOPHILS PERCENT AUTO 5.9 % (0.0-6.0); HEMATOCRIT 33.8 % (37.0-47.0); HEMOGLOBIN 10.7 gm/dl (12.0-16.0); IMMATURE GRAN ABSOLUTE AUTO 0.06 K/mm3 (0.00-0.05); LYMPHOCYTES ABSOLUTE AUTO 0.9 K/mm3 (1.0-4.8); LYMPHOCYTES PERCENT AUTO 15.3 % (24.0-44.0); MEAN CORPUSCULAR HEMOGLOBIN 25.6 pg (28.0-32.0); MEAN CORPUSCULAR HGB CONC 31.7 g/dl (32.0-36.0); MEAN CORPUSCULAR VOLUME 80.9 fl (83.0-99.0); MONOCYTES PERCENT AUTO 16.9 % (0.0-8.0); NEUTROPHILS ABSOLUTE AUTO 3.6 K/mm3 (1.8-7.7); NEUTROPHILS PERCENT AUTO 60.4 % (41.0-71.0); PLATELET COUNT,PLT 257 K/mm3 (150-400); RED BLOOD CELL COUNT 4.18 M/mm3 (4.10-5.30); WHITE BLOOD CELL COUNT,WBC 5.93 K/mm3 (3.9-11.3)
[2023-09-22 05:34] LABS: ANION GAP 10.6 (5-15); CALCIUM 8.5 mg/dL (8.5-10.1); CREATININE 0.6 mg/dL (0.55-1.02); EST CRCL DRUG DOSING (CG) 121.13 mL/min; MAGNESIUM 1.8 mg/dL (1.8-2.4); POTASSIUM,K 3.6 mEq/L (3.5-5.1)
[2023-09-22 05:52] LABS: C-REACTIVE PROTEIN 15.2 mg/dL (<1.0)
[2023-09-22] MEDS: Thiamine 100 MG Tab PO SCH (08:25)
[2023-09-22] MEDS: Folic Acid 1 MG Tab PO SCH (08:25)
[2023-09-22] MEDS: HYDROmorphone 2 MG Tab PO PRN ×5 (08:25→20:44)
[2023-09-22] MEDS: Simethicone 80 MG Tab.Chew PO PRN ×2 (11:28→20:27)
[2023-09-22] MEDS: Acetaminophen 325 MG Tab PO PRN ×2 (16:51→20:26)
[2023-09-22] MEDS: cefTRIAXone 2 GM in Sodium Chloride 0.9% 100 ML IV SCH (17:48)
[2023-09-23] MEDS: HYDROmorphone 2 MG Tab PO PRN ×3 (01:04→11:28)
[2023-09-23] MEDS: Acetaminophen 325 MG Tab PO PRN ×3 (01:05→09:00)
[2023-09-23] MEDS: Simethicone 80 MG Tab.Chew PO PRN (05:00)
[2023-09-23] MEDS: Heparin Sodium 5,000 Units/ML Vial SUBCUT SCH ×2 (05:00→12:58)
[2023-09-23] MEDS: Pantoprazole 40 MG Tab.CR PO SCH (05:00)
[2023-09-23 05:32] LABS: BASOPHILS PERCENT AUTO 0.6 % (0.0-1.0); EOSINOPHILS ABSOLUTE AUTO 0.3 K/mm3 (0.0-0.4); EOSINOPHILS PERCENT AUTO 4.1 % (0.0-6.0); HEMATOCRIT 36.5 % (37.0-47.0); HEMOGLOBIN 11.7 gm/dl (12.0-16.0); IMMATURE GRAN PERCENT AUTO 1.6 % (0.0-0.4); MEAN CORPUSCULAR HEMOGLOBIN 25.3 pg (28.0-32.0); MEAN CORPUSCULAR HGB CONC 32.1 g/dl (32.0-36.0); MEAN PLATELET VOLUME 10.9 fl (9.4-12.3); MONOCYTES ABSOLUTE AUTO 0.9 K/mm3 (0.0-0.8); MONOCYTES PERCENT AUTO 13.5 % (0.0-8.0); NEUTROPHILS ABSOLUTE AUTO 4.1 K/mm3 (1.8-7.7); NEUTROPHILS PERCENT AUTO 64.2 % (41.0-71.0); PLATELET COUNT,PLT 293 K/mm3 (150-400); RED BLOOD CELL COUNT 4.62 M/mm3 (4.10-5.30); WHITE BLOOD CELL COUNT,WBC 6.37 K/mm3 (3.9-11.3)
[2023-09-23 05:54] LABS: ANION GAP 13.7 (5-15); BUN/CREATININE RATIO 12.9 (14-18); C-REACTIVE PROTEIN 11.9 mg/dL (<1.0); CALCIUM 8.9 mg/dL (8.5-10.1); CREATININE 0.7 mg/dL (0.55-1.02); EST CRCL DRUG DOSING (CG) 103.82 mL/min; POTASSIUM,K 3.7 mEq/L (3.5-5.1)
[2023-09-23] MEDS: Thiamine 100 MG Tab PO SCH (08:54)
== END 2023-09-23 12:19 | disposition home or self-care (01) | DRG 392 ==
LOC: JD.ED 11:00 → JD.MS 18:02
PROVIDERS: ADMIT Hospitalist; ATTEND Internal Medicine
DX: K52.9 Noninfective gastroenteritis and colitis, unspecified (principal); K56.7 Ileus, unspecified; N30.01 Acute cystitis with hematuria; K21.9 Gastro-esophageal reflux disease without esophagitis; E66.9 Obesity, unspecified; E87.6 Hypokalemia; F41.9 Anxiety disorder, unspecified; F32.A Depression, unspecified; F17.210 Nicotine dependence, cigarettes, uncomplicated; F10.90 Alcohol use, unspecified, uncomplicated; Z68.37 Body mass index [BMI] 37.0-37.9, adult; Z90.49 Acquired absence of other specified parts of digestive tract; Z98.84 Bariatric surgery status; Z88.0 Allergy status to penicillin; Z91.040 Latex allergy status; Z68.36 Body mass index [BMI] 36.0-36.9, adult
CPT/HCPCS: 36415; 71260; 74177; 80053; 83630; 83690; 85025; 86140; 87045; 87046 ×3; 87493 ×2; 87899 ×2; 96361; 96365; 96372; 96375; 99285; J0500; J1170; J1200; J1885; J2765; J3480; J3490 ×2; J7030; Q9967 ×2; 80048; 81001; 83735; 87086; 87088; 99222; 99232; 99239; A9270-GY; C9113; J0696; J1644; J3411; J7120

== ENCOUNTER 2025-03-29 02:29 | Emergency (ER) | payer SELFPAY ==
[2025-03-29] MEDS ORDERED: Clindamycin Phosphate 300 MG/2 ML SDV IM ONE (03:46)
[2025-03-29] MEDS ORDERED: Naloxone 0.4 MG/ML SDV IVPUSH PRN (03:50)
[2025-03-29] MEDS: Ketorolac 60 MG/2 ML SDV IM ONE (03:59)
== END 2025-03-29 04:33 | disposition home or self-care (01) ==
LOC: JD.ED 02:29
DX: K08.89 Other specified disorders of teeth and supporting structures (principal); K21.9 Gastro-esophageal reflux disease without esophagitis; F17.210 Nicotine dependence, cigarettes, uncomplicated; Z79.899 Other long term (current) drug therapy; Z88.0 Allergy status to penicillin; Z88.1 Allergy status to other antibiotic agents; Z91.040 Latex allergy status
CPT/HCPCS: 96372; 99283; A9270; J1171; J1885; 99284

== ENCOUNTER 2025-03-30 10:25 | Emergency (ER) | payer SELFPAY ==
[2025-03-30] MEDS ORDERED: Sodium Chloride 0.9% 10 ML Syringe FLUSH PRN (10:51)
[2025-03-30] MEDS: Iopamidol 612 MG/ML 100 ML Bottle IVPUSH ONE (11:34)
[2025-03-30] MEDS: Sodium Chloride 0.9% 10 ML Syringe FLUSH ONE (11:34)
[2025-03-30 11:40] LABS: MEAN PLATELET VOLUME 11.1 fl (9.4-12.3); NRBC ABSOLUTE 0.00 (0.00-0.02); NRBC PERCENT 0.0 % (0.0-0.2); RED BLOOD CELL COUNT 4.66 M/mm3 (4.10-5.30); WHITE BLOOD CELL COUNT,WBC 7.49 K/mm3 (3.9-11.3)
[2025-03-30] MEDS: Ketorolac 30 MG/ML SDV IVPUSH ONE (11:42)
[2025-03-30 11:55] LABS: PLATELET COUNT,PLT 217 K/mm3 (150-400)
[2025-03-30 12:02] LABS: INR 0.94
[2025-03-30 12:07] LABS: LACTIC ACID 0.5 mmol/L (0.4-2.0)
[2025-03-30 12:11] LABS: BAND PERCENT MAN 0 % (0-10); BASOPHILS PERCENT MAN 0 (0.1-1.2); EOSINOPHILS PERCENT MAN 3 % (0.7-5.8); LYMPHOCYTES % ATYPICAL MANUAL 0 %; LYMPHOCYTES PERCENT MAN 22 % (20-40); MONOCYTES PERCENT MAN 10 % (2-10)
[2025-03-30 12:13] LABS: A/G RATIO 0.9 (1-2); ALANINE AMINOTRANSFERASE,ALT 30.0 U/L (14-59); ASPARTATE AMNIOTRANSFERASE,AST 26.0 U/L (15-37); BILIRUBIN TOTAL 0.2 mg/dL (0.2-1.0); BLOOD UREA NITROGEN,BUN 12.0 mg/dL (7-18); CARBON DIOXIDE,CO2 25.0 mEq/L (21-32); CHLORIDE,CL 105.0 mEq/L (98-107); CREATININE 0.6 mg/dL (0.55-1.02); EST CRCL DRUG DOSING (CG) 120.0 mL/min; ESTIMATED GFR 121.0 mL/min (>60); GLUCOSE RANDOM 89.0 mg/dL (70-99); POTASSIUM,K 3.8 mEq/L (3.5-5.1); PROTEIN TOTAL,TP 6.4 g/dl (6.4-8.2); SODIUM,NA 139.0 mEq/L (136-145)
[2025-03-30 12:14] LABS: PLATELET COUNT ESTIMATE ADEQUATE
== END 2025-03-30 13:05 | disposition home or self-care (01) ==
LOC: JD.ED 10:25
DX: K04.7 Periapical abscess without sinus (principal); K21.9 Gastro-esophageal reflux disease without esophagitis; F17.210 Nicotine dependence, cigarettes, uncomplicated; Z88.0 Allergy status to penicillin; Z91.040 Latex allergy status; Z88.1 Allergy status to other antibiotic agents; Z79.899 Other long term (current) drug therapy; Z90.49 Acquired absence of other specified parts of digestive tract
CPT/HCPCS: 36415; 70487; 80053; 83605; 85007; 85027; 85610; 86140; 87040; 96374; 96375; 99284; J0696; J1171; J1885; Q9967